=== PATIENT | male | born 1980 | race Caucasian/White ===

== ENCOUNTER 2020-02-22 19:36 | Emergency (ER) | payer BC, SELFPAY ==
[2020-02-22 19:41] VITALS: BP 162/96; PULSE 94; RESP 18; TEMP 36.3; O2SAT 97
[2020-02-22] MEDS: TETANUS,DIPHTHERIA,AC PERTUSSIS ADULT (0.5 ML) BOOSTRIX IM (20:13)
--- NOTE | 2020-02-22 20:16 | ED.WOUNDLAC ---
HPI - Wound/Laceration General Chief Complaint: Wound/Laceration Stated Complaint: lac to foot Time Seen by Provider: 02/22/20 19:39 Source: patient Mode of arrival: ambulatory Limitations: no limitations History of Present Illness HPI narrative: Patient is a 40-year-old male who presents with a chainsaw injury to the dorsal surface of the right foot patient was using a chainsaw when he cut through his boot sustaining a small laceration to the dorsal surface of the foot patient presents with midfoot laceration measuring 1 cm that is superficial and linear Related Data Allergies Allergy/AdvReac Type Severity Reaction Status Date / Time NKDA Allergy Mild Unknown Uncoded 06/30/19 13:56 Review of Systems Review of Systems: All systems reviewed & are unremarkable except as noted in HPI and below PMFSH Surgical History Surgical History History of orthopedic surgery Family History Family History (Updated 12/05/17 @ 10:00 by DOCTOR UNKNOWN) Other Cerebrovascular accident Diabetes mellitus Family history of coronary artery disease Hypertension Social History Social History Smoking status: Former smoker Smoking end date: 08/27/11 Alcohol intake: current Exam Narrative: Exam Narrative: GENERAL: Well-appearing, well-nourished, and in no acute distress. HEAD: Normocephalic, atraumatic. EYES: PERRLA and EOMI. ENT: Nares clear, no rhinorrhea or epistaxis. Mucous membranes moist. EXTREMITIES: Normal range of motion. No edema. SKIN: Warm, dry, no rash. Linear 1 cm superficial laceration of the right midfoot dorsal surface NEURO: No focal deficits. Alert and oriented x3. Neurovascularly intact PSYCH: Normal mood and affect. Course Vital Signs Vital signs: Vital Signs Temperature 97.4 F L 02/22/20 19:41 Pulse Rate 94 02/22/20 19:41 Respiratory Rate 18 02/22/20 19:41 Blood Pressure 162/96 H 02/22/20 19:41 Pulse Oximetry 97 02/22/20 19:41 Temperature 97.4 F L 02/22/20 19:41 Pulse Rate 94 02/22/20 19:41 Respiratory Rate 18 02/22/20 19:41 Blood Pressure 162/96 H 02/22/20 19:41 Pulse Oximetry 97 02/22/20 19:41 Procedures Laceration Laceration 1: Date: 02/22/20 Time: 20:17 Site: lower extremity Size (cm): 1 Description: linear Depth: simple, single layer Local Anesthetic: lidocaine 1% Pre-repair: wound explored and irrigated ====== Skin Level ====== Skin layer closed with: quynh and steri strips Number of sutures: 2 ====== Subcutaneous Layer ====== ====== Muscle Layer ====== ====== Tendon Layer ====== Dressing: Nonadhesive antibiotic ointment 4 x 4 and Coban placed post procedure MDM - Wound/Laceration MDM Narrative Medical decision making narrative: Patients injury or pain is consistent with musculoskeletal etiology. No signs of neurological or vascular compromise on exam. Compartments and tisues are soft without signs of compartment syndrome. Pain is felt appropriate for further evaluation on an outpatient basis. Discharge Plan Discharge Clinical Impression: Laceration Patient Disposition: Home, Self-Care Condition: Stable Instructions: Antibiotic Form, Laceration (ED) Additional Instructions: Keep wound clean and dry. Do not soak, take baths, or swim until wound is completely healed. If any signs of infection such as redness, swelling, increasing pain, drainage of purulent discharge, streaks up your extremity develop, seek medical attention immediately. Followup with your primary care provider in [7] days for suture removal. [] Prescriptions: No Action methylprednisolone [Medrol (Carlos)] 4 mg tablets,dose pack See Rx Instructions .ROUTE .COMPLEX Qty: 21 RF: 0 cyclobenzaprine 5 mg tablet 5 mg PO TID PRN (Reason: muscle spasm)
== END 2020-02-22 20:25 | disposition home or self-care (01) ==
PROVIDERS: Emergency Provider Emergency Medicine
DX: S91.311A Laceration without foreign body, right foot, initial encounter (principal); Z23 Encounter for immunization; Z87.891 Personal history of nicotine dependence; W31.2XXA Contact with powered woodworking and forming machines, initial encounter
CPT/HCPCS: 12001; 90471; 90715; 99282

== ENCOUNTER 2020-05-15 12:12 | Emergency (ER) | payer BC, SELFPAY ==
--- NOTE | ~2020-05-15 | XR_ITS ---
XR lumbar spine min 4V DATE: 05/15/2020 13:27 INDICATION: Low back pain. No injury. TECHNIQUE: AP, lateral, coned lateral lumbosacral and bilateral oblique views COMPARISON: None FINDINGS: No fracture or bone destruction, spondylolysis or spondylolisthesis. The included lower tho racic and lumbar pedicles are intact. There is minimal degenerative spurring of the lumbar spine. There is mild loss of interspace height a t L4-5. The sacroiliac joints are intact. IMPRESSION: Mild degenerative change Reviewed, dictated and finalized at location A. IMPRESSION: Mild degenerative change
[2020-05-15 12:17] VITALS: BP 147/91; PULSE 80; RESP 20; TEMP 36.4; O2SAT 98
[2020-05-15] MEDS: SODIUM CHLORIDE 0.9% IV 1,000 ML 999 ML IV CONT (13:14)
[2020-05-15] MEDS: HYDROcodone/acetaminophen (*CRX) 7.5-325 MG TABLET 1 TAB PO (13:15)
[2020-05-15] MEDS: KETOROLAC 30 MG/ML VIAL (*BKC) IV PUSH (13:15)
[2020-05-15] MEDS: diazePAM INJ (*CRX) 10 MG/2 ML SYRINGE 5 MG IV PUSH (13:18)
--- NOTE | 2020-05-15 13:18 | ED.BACK ---
HPI - Back Pain/Injury General Chief Complaint: Back Pain/Injury Stated Complaint: back pain, possible kidney infections Time Seen by Provider: 05/15/20 12:32 Source: patient and family Mode of arrival: ambulatory Limitations: no limitations History of Present Illness HPI Narrative: Patient is a 40-year-old male who presents with low back pain noting bilateral low back pain to the paraspinal musculature for 1 week worse with activity and movement radiating to the thighs had been taking Aleve throughout the week with some improvement yesterday after working pain was much worse and has intensified patient notes he has exacerbations of this sort a few times throughout the year has not seen primary care for this presents uncomfortable but in no distress Related Data Allergies Allergy/AdvReac Type Severity Reaction Status Date / Time NKDA Allergy Mild Unknown Uncoded 05/15/20 12:26 Review of Systems Review of Systems: All systems reviewed & are unremarkable except as noted in HPI and below PMFSH Family History Family History (Updated 12/05/17 @ 10:00 by DOCTOR UNKNOWN) Other Cerebrovascular accident Diabetes mellitus Family history of coronary artery disease Hypertension Social History Social History Smoking status: Former smoker Smoking end date: 08/27/11 Alcohol intake: current Gender identity (if verbalized by the patient): Male Exam Narrative: Exam Narrative: GENERAL: Well-appearing, well-nourished, and in no acute distress. HEAD: Normocephalic, atraumatic. EYES: PERRLA and EOMI. ENT: Nares clear, no rhinorrhea or epistaxis. Mucous membranes moist. Oropharynx without tonsillar hypertrophy exudate or other lesions. NECK: Supple. No adenopathy or masses. CHEST: Clear to auscultation. No respiratory distress. No wheezes rales or rhonchi HEART: Regular rate and rhythm. No murmur heard. Normal peripheral pulses. ABDOMEN: Soft, nontender, nondistended EXTREMITIES: Normal range of motion. No edema. Tenderness of the paraspinal musculature of the lumbar region no deformities rashes or other abnormalities noted SKIN: Warm, dry, no rash. NEURO: No focal deficits. Alert and oriented x3. Cranial nerves II through XII grossly. Motor and sensory intact and symmetrical in the lower extremities PSYCH: Normal mood and affect. Course Course Emergency Course: Patient in the room in no distress aware of case findings treatment plan and diagnosis agreeing to follow-up with primary care had improvement with medications no high risk changes in the blood work or imaging felt appropriate for outpatient reevaluation will be treated with anti-inflammatories and muscle relaxers with musculoskeletal back pain is the likely etiology of his symptoms Vital Signs Vital signs: Vital Signs Temperature 97.5 F L 05/15/20 12:17 Pulse Rate 80 05/15/20 12:17 Respiratory Rate 20 05/15/20 12:17 Blood Pressure 147/91 H 05/15/20 12:17 Pulse Oximetry 98 05/15/20 12:17 Temperature 97.5 F L 05/15/20 12:17 Pulse Rate 80 05/15/20 12:17 Respiratory Rate 20 05/15/20 12:17 Blood Pressure 147/91 H 05/15/20 12:17 Pulse Oximetry 98 05/15/20 12:17 MDM - Back Pain/Injury MDM Narrative Medical decision making narrative: Patients injury or pain is consistent with musculoskeletal etiology. No signs of neurological or vascular compromise on exam. Compartments and tisues are soft without signs of compartment syndrome. Pain is felt appropriate for further evaluation on an outpatient basis. Lab Data Result diagrams: 05/15/20 13:12 05/15/20 13:12 Labs: Lab Results 05/15/20 05/15/20 05/15/20 Range/Units 13:12 13:12 13:12 WBC 5.4 (4.5-10.0) K/mm3 RBC 5.28 (4.6-6.20) M/mm3 Hgb 14.7 (14.0-18.0) g/dL Hct 43.3 (42.0-52.0) % MCV 82.0 (80-100) fl MCH 27.8 (26-34) pg MCHC 33.9 (32-36) g/dl RDW 13.6
[2020-05-15 13:34] LABS: Basophils Percent Auto 0.7 % (0.2-1.2); Eosinophils Absolute Auto 0.2 K/mm3 (0-0.3); Eosinophils Percent Auto 3.1 % (0-4.4); Hematocrit 43.3 % (42.0-52.0); Hemoglobin 14.7 g/dL (14.0-18.0); Immature Granulocyte Absolute 0.01 K/mm3 (0.00-0.031); Immature Granulocyte Percent A 0.2 % (0-0.5); Lymphocytes Absolute Auto 1.56 K/mm3 (0.9-3.2); Lymphocytes Percent Auto 28.7 % (18.3-44.2); Mean Corpuscular HGB Conc 33.9 g/dl (32-36); Mean Corpuscular Hemoglobin 27.8 pg (26-34); Mean Platelet Volume 9.6 fl (7.4-10.4); Monocytes Absolute Auto 0.5 K/mm3 (0.1-0.6); Neutrophils Absolute Auto 3.2 K/mm3 (1.3-6.7); Neutrophils Percent Auto 58.3 % (45.5-73.1); Platelet Count Result 229 k/mm3 (150-375); Red Blood Count 5.28 M/mm3 (4.6-6.20); Red Cell Distribution Width 13.6 % (11.5-14.5); White Blood Count 5.4 K/mm3 (4.5-10.0)
[2020-05-15 13:36] LABS: Add Urine Microscopic? NO; Appearance Urine Clear (Clear); Bilirubin Urine Negative (Negative); Blood Urine Negative (Negative); Color Urine Straw (Yellow); Glucose Urine UA Negative (Negative); Ketones Urine Negative (Negative); Leukocyte Esterase Ur Negative LEU/UL (Negative); Nitrate Urine Negative (Negative); Protein Urine Negative (Negative); Specific Grav Ur 1.009 (1.001-1.035); Urobilinogen Urine Negative mg/dL (<2.0)
[2020-05-15 13:58] LABS: Anion Gap 6 mmol/L (8-16); Blood Urea Nitrogen 13 mg/dL (9-20); Calcium 8.9 mg/dL (8.4-10.2); Carbon Dioxide 28 mmol/L (22-30); Chloride 104 mmol/L (98-107); Estimated CRCL calculation 124 ml/min; Estimated Glomerular Filt Rate > 60; Glucose 110 mg/dL (75-110); Potassium 3.9 mmol/L (3.4-5.0); Sodium 138 mmol/L (137-145)
[2020-05-15 14:35] VITALS: BP 141/80; PULSE 70; RESP 18; O2SAT 98
== END 2020-05-15 14:36 | disposition home or self-care (01) ==
PROVIDERS: Emergency Medicine Emergency Medical Services; Emergency Provider Emergency Medicine; PCP Family Medicine
DX: M54.16 Radiculopathy, lumbar region (principal); Z87.891 Personal history of nicotine dependence
CPT/HCPCS: 36415; 72110; 80048; 81003; 85025; 96361; 96374; 96375; 99284; A9270; J1885; J3360; J7030

== ENCOUNTER 2022-03-22 14:52 | Emergency (ER) | payer OTHER, SELFPAY ==
[2022-03-22 15:02] VITALS: BP 148/98; PULSE 96; RESP 18; TEMP 36.7; O2SAT 98
--- NOTE | 2022-03-22 15:10 | ED.EAR ---
HPI - Ear Problem General Chief complaint: Ear Stated complaint: ear pain Time Seen by Provider: 03/22/22 15:10 History of Present Illness HPI Narrative: Will Young is a 42 yo male with a PMH of HTNwho comes w L ear pain- started on Sat and pain resolved. Returned yesterday- 3/10 at rest , worse with chewing, No hearing change. Swimming on Sunday and thinks that he got water in his ear Related Data Allergies Allergy/AdvReac Type Severity Reaction Status Date / Time No Known Allergies Allergy Verified 03/22/22 15:08 Review of Systems Review of Systems: CONSTITUTIONAL: Denies fever, chills, sweats. EYES: Denies visual changes, redness, discharge. ENT: Denies rhinorrhea, congestion, sore throat, otalgia. CARDIOVASCULAR: Denies chest pain, palpitations, edema. RESPIRATORY: Denies dyspnea, wheezing, cough GASTROINTESTINAL: Denies abdominal pain, nausea, vomiting, diarrhea. GENITOURINARY: Denies dysuria, hematuria, abnormal discharge SKIN: Denies rash or itching. NEUROLOGIC: Denies numbness, or focal weakness. PSYCHIATRIC: Denies anxiety or depression. [facility] Past Medical History Medical History Dyshidrotic eczema Essential (primary) hypertension Labral tear of shoulder right shoulder Pre-diabetes Thyroglossal duct cyst (~1981) Surgical History Surgical History History of orthopedic surgery (~12/03/17) ORIF of tibial fracture History of repair of ACL Right ACL and LCL repair at age 17 History of shoulder surgery (~2006) Repair of right shoulder labrum Family History Family History Son Anxiety ADHD Other Cerebrovascular accident Diabetes mellitus Family history of coronary artery disease Hypertension Social History Social History Smoking status: Current every day smoker Second hand tobacco smoke exposure: No Alcohol intake: current Alcohol use details: consumes 5 beers weekly Gender identity (if verbalized by the patient): Male Comments At time of signature, I agree with nursing past medical, surgical, social and family history. There is no relevant family history pertinent to the presenting complaint. Patient being treated for HTN Exam Narrative: GENERAL: This is a well-nourished, well-developed patient, in mild distress. pain is 5 out of 10 HEAD: normocephalic, atraumatic. EYES: Sclera clear/white. Vision is grossly intact. EARS: External ears normal, auditory canals clear on right and swollen and painful on right with erythema with drainage, TMs normal without perforation. Hearing grossly intact. Painful anterior to pinna NOSE: External nose normal without nasal discharge, nares without redness, no rhinorrhea. THROAT: Mucous membranes moist, NECK: Neck supple, non-tender CARDIOVASCULAR: Regular rate and rhythm without murmurs, gallops, or rubs. RESPIRATORY: Clear to auscultation. Breath sounds equal bilaterally. No wheezes, rales, or rhonchi. GASTROINTESTINAL: Not done SKIN: warm, intact with no suspicious lesions or rash, good texture and turgor. NEURO: awake, alert, and oriented to person, place and time. There were no obvious focal neurologic abnormalities. Steady gait EXTREMITIES: Normal range of motion. BACK: Nontender without deformity Course Course Emergency Course: Patient here with left-sided ear pain and pain with chewing or motion of jaw, started after going swimming on Sunday pain is intensified in the last day or 2 Start amoxicillin 875 twice daily and eardrops-discussed administration of ear drops Level of Care: Express Care Visit Vital Signs Vital signs: Vital Signs Temperature 98.1 F 03/22/22 15:02 Pulse Rate 96 03/22/22 15:02 Respiratory Rate 18 03/22/22 15:02 Blood Pressure 148/98 H 03/22/22 15:02 Pulse Oximetry 98 07
== END 2022-03-22 15:28 | disposition home or self-care (01) ==
PROVIDERS: Emergency Provider Nurse Practitioner; PCP Family Medicine
DX: H65.92 Unspecified nonsuppurative otitis media, left ear (principal); F17.200 Nicotine dependence, unspecified, uncomplicated; I10 Essential (primary) hypertension; R73.03 Prediabetes
CPT/HCPCS: 99213; G0463

== ENCOUNTER 2022-10-26 11:31 | Emergency (ER) | payer SELFPAY ==
[2022-10-26 11:42] VITALS: BP 165/105; PULSE 86; RESP 16; TEMP 36.4; O2SAT 98
--- NOTE | 2022-10-26 12:11 | ED.BACK ---
HPI - Back Pain/Injury General Chief Complaint: Back Pain/Injury Stated Complaint: BACK PAIN Time Seen by Provider: 10/26/22 12:04 Source: patient Mode of arrival: ambulatory Limitations: no limitations History of Present Illness HPI Narrative: patient is a 42-year-old male who presents with mid back pain starting this morning. States he took some Aleve last night because he felt sore with mild relief. Now complaining back spasms movement and pain shooting his legs. Denies any numbness or tingling or difficulty walking. denies any injury to back. states this happens every 1-2 years. Related Data Allergies Allergy/AdvReac Type Severity Reaction Status Date / Time No Known Allergies Allergy Verified 10/26/22 11:38 Review of Systems Review of Systems: CONSTITUTIONAL: Denies malaise, chills, sweats, or fever. EYES: Denies visual changes, redness, or discharge. ENT: Denies rhinorrhea, congestion, sinus pain, otalgia or sore throat. CARDIOVASCULAR: Denies chest pain, palpitations, or edema. RESPIRATORY: Denies cough or dyspnea. GASTROINTESTINAL: Denies abdominal pain, nausea, vomiting, diarrhea, bloody, or mucous stools. Denies incontinence of stool. GENITOURINARY: Denies dysuria or hematuria. Denies incontinence of bladder SKIN: Denies rash or itching. MUSCULOSKELETAL: Denies joint pain, or myalgia. reports back pain NEUROLOGIC: Denies numbness, weakness, or headache. PSYCHIATRIC: Denies anxiety or depression. All systems reviewed & are unremarkable except as noted in HPI and below PMFSH Past Medical History Medical History Dyshidrotic eczema Essential (primary) hypertension Labral tear of shoulder right shoulder Pre-diabetes Thyroglossal duct cyst (~1981) Surgical History Surgical History History of orthopedic surgery (~12/03/17) ORIF of tibial fracture History of repair of ACL Right ACL and LCL repair at age 17 History of shoulder surgery (~2006) Repair of right shoulder labrum Family History Family History Son Anxiety ADHD Other Cerebrovascular accident Diabetes mellitus Family history of coronary artery disease Hypertension Social History Social History Smoking packs per day: 1 Smoking cigarettes per day: 20.0 Smoking status: Current every day smoker Second hand tobacco smoke exposure: No Alcohol intake: current Alcohol use details: consumes 5 beers weekly Substance use: never Substance use type: does not use Gender identity (if verbalized by the patient): Male Comments At time of signature, agree with nursing past medical, surgical, social and family history. There is no relevant family history pertinent to the presenting complaint. Exam Narrative: GENERAL: Well-appearing, well-nourished, and in no acute distress. HEAD: Normocephalic, atraumatic. EYES: PERRLA and EOMI. NECK: Supple. No lymphadenopathy. CHEST: Clear to auscultation. No respiratory distress. HEART: Regular rate and rhythm. Distal pulses palpable and equal, cap refill <3 seconds ABDOMEN: Soft, nontender, nondistended, normal active bowel sounds, no palpable or pulsatile masses. No CVA tenderness MUSCULOSKELETAL: Normal range of motion and strength in all extremities; 5/5 strength with hip flexion and extension, dorsiflexion and extension, knee flexion and extension, plantar flexion and extension. Normal sensation in dermatomal distributions with sensitivity to light touch and pain. No midline back tenderness to palpation. Lumbar paraspinal tenderness bilaterally. Transfers from lying to sitting to standing. SKIN: Warm, dry, no rash. No ecchymosis, erythema, open wounds to back. NEURO: No focal deficits. Alert and oriented x3. Reflexes intact. Normal gait. PSYCH: Normal mood and af
== END 2022-10-26 12:28 | disposition home or self-care (01) ==
PROVIDERS: Emergency Provider Nurse Practitioner Family; PCP Family Medicine
DX: M54.9 Dorsalgia, unspecified (principal); I10 Essential (primary) hypertension; F17.210 Nicotine dependence, cigarettes, uncomplicated
CPT/HCPCS: 99213; G0463

== ENCOUNTER 2023-11-05 11:23 | Emergency (ER) | payer BC, SELFPAY ==
[2023-11-05 11:38] VITALS: BP 172/108; PULSE 93; RESP 16; TEMP 37.2; O2SAT 98
--- NOTE | 2023-11-05 12:07 | ED.GENADULT ---
HPI - General Adult General Chief complaint: Upper Respiratory Infection Stated complaint: Sinus/Bodyaches Time Seen by Provider: 11/05/23 12:07 Source: patient, RN notes reviewed and old records reviewed Mode of arrival: ambulatory Limitations: no limitations History of Present Illness HPI narrative: 43-year-old patient to Express Care for complaint of nasal congestion, nonproductive cough, sore throat, chills, and hoarseness for 4 days. Patient denies nausea, vomiting, diarrhea, shortness of breath. patient in no signs of distress. Respirations even and labored. Patient able to control secretions. Patient able to tolerate fluids by mouth. Related Data Home Medications Medication Instructions Recorded Confirmed No Home Medications 11/05/23 11/05/23 Allergies Allergy/AdvReac Type Severity Reaction Status Date / Time No Known Allergies Allergy Verified 11/05/23 11:44 Review of Systems Review of Systems: All systems reviewed & are unremarkable except as noted in HPI and below Constitutional: Constitutional: Reports body ache(s), Reports chills, Reports fever(s) ( subjective) and Denies headache(s) Eyes: Eyes: Reports no additional eye complaints ENT: Reports as per HPI, Reports hoarseness, Reports nasal congestion and Reports sore throat Cardiovascular: Cardiovascular: Reports no additional cardiovascular complaints, Denies chest pain and Denies dyspnea Respiratory: Respiratory: Reports as per HPI, Reports cough ( nonproductive) and Denies dyspnea Musculoskeletal: Musculoskeletal: Reports no additional musculoskeletal complaints Neurologic: Reports system reviewed and no additional complaints, except as documented Psychiatric: Psychiatric: Reports no additional psychiatric complaints PMFSH Past Medical History Medical History Dyshidrotic eczema Essential (primary) hypertension Labral tear of shoulder right shoulder Pre-diabetes Thyroglossal duct cyst (~1981) Surgical History Surgical History History of orthopedic surgery (~12/03/17) ORIF of tibial fracture History of repair of ACL Right ACL and LCL repair at age 17 History of shoulder surgery (~2006) Repair of right shoulder labrum Family History Family History Son Anxiety ADHD Other Cerebrovascular accident Diabetes mellitus Family history of coronary artery disease Hypertension Social History Social History Smoking packs per day: 1 Smoking cigarettes per day: 20.0 Years smoked: 27 Smoking pack-years: 27.00 Smoking status: Current every day smoker Tobacco type: cigarettes Second hand tobacco smoke exposure: No Alcohol intake: current Alcohol use details: consumes 5 beers weekly Substance use: never Substance use type: does not use Lack of Transportation: No Lack of Food: Never True Current Housing: I Have Housing Concerned About Future Housing: No Difficulty Paying Gas/Electric Bills: No Difficulty Paying for Meds: No Currently Unemployed: No Education: Trade/Vocational Certificate Living arrangements: with family Occupation/Education: occupation Gender identity (if verbalized by the patient): Male Agree to blood products: Yes Comments At the time of my signature, I reviewed and agree with the nursing past medical, surgical, social, and family history. There is no relevant family history pertinent to the patient complaint. Exam Const: General: cooperative, healthy appearing, comfortable, no acute distress, alert and well nourished Nutritional Appearance: well nourished Orientation/consciousness: patient oriented x3 Limitations: no limitations HENMT: Head: normal to inspection Ears: external ears normal Face/Nose/Sinus: Normal external nose
== END 2023-11-05 12:25 | disposition home or self-care (01) ==
PROVIDERS: Emergency Provider Nurse Practitioner Family; PCP Family Medicine
DX: J06.9 Acute upper respiratory infection, unspecified (principal); Z20.822 Contact with and (suspected) exposure to COVID-19; F17.210 Nicotine dependence, cigarettes, uncomplicated; I10 Essential (primary) hypertension; R73.03 Prediabetes
CPT/HCPCS: 87426; 87804; 99213; G0463

== ENCOUNTER 2023-11-18 10:34 | Emergency (ER) | payer BC, SELFPAY ==
[2023-11-18 10:35] VITALS: BP 158/98; PULSE 89; RESP 18; TEMP 36.6; O2SAT 100
--- NOTE | 2023-11-18 11:35 | ED.BACK ---
HPI - Back Pain/Injury General Chief Complaint: Back Pain/Injury Stated Complaint: bilat back pain, spasms Time Seen by Provider: 11/18/23 10:45 History of Present Illness HPI Narrative: 33-year-old male with history of hypertension presents to the emergency department for bilateral back pain that started yesterday around 4:00 p.m.. Patient states it feels like muscle spasms and is located throughout his lower back. He denies radicular radiating pain, saddle anesthesia, bowel or bladder incontinence or retention, recent injury trauma, IV drug use, fever, nausea or vomiting, dysuria or hematuria. Related Data Allergies Allergy/AdvReac Type Severity Reaction Status Date / Time No Known Allergies Allergy Verified 11/18/23 10:42 Review of Systems Review of Systems: CONSTITUTIONAL: Denies fever, chills, or sweats. EYES: Denies visual changes, redness, or discharge. ENT: Denies rhinorrhea, congestion, sore throat, or otalgia. CARDIOVASCULAR: Denies chest pain, palpitations, or edema. RESPIRATORY: Denies cough or dyspnea. GASTROINTESTINAL: Denies abdominal pain, nausea, vomiting, or diarrhea. GENITOURINARY: Denies dysuria or hematuria. SKIN: Denies rash or itching. MUSCULOSKELETAL: See HPI NEUROLOGIC: Denies headache, numbness, or weakness. PSYCHIATRIC: Denies anxiety or depression. [facility] Past Medical History Medical History Dyshidrotic eczema Essential (primary) hypertension Labral tear of shoulder right shoulder Pre-diabetes Thyroglossal duct cyst (~1981) Surgical History Surgical History History of orthopedic surgery (~12/03/17) ORIF of tibial fracture History of repair of ACL Right ACL and LCL repair at age 17 History of shoulder surgery (~2006) Repair of right shoulder labrum Family History Family History Son Anxiety ADHD Other Cerebrovascular accident Diabetes mellitus Family history of coronary artery disease Hypertension Social History Social History Smoking packs per day: 1 Smoking cigarettes per day: 20.0 Years smoked: 27 Smoking pack-years: 27.00 Smoking status: Current every day smoker Tobacco type: cigarettes Second hand tobacco smoke exposure: No Alcohol intake: current Alcohol use details: consumes 5 beers weekly Substance use: never Substance use type: does not use Lack of Transportation: No Lack of Food: Never True Current Housing: I Have Housing Concerned About Future Housing: No Difficulty Paying Gas/Electric Bills: No Difficulty Paying for Meds: No Currently Unemployed: No Education: Trade/Vocational Certificate Living arrangements: with family Occupation/Education: occupation Gender identity (if verbalized by the patient): Male Agree to blood products: Yes Exam Narrative: GENERAL: Well-appearing, well-nourished, and in no acute distress. HEAD: Normocephalic, atraumatic. NECK: Supple. BACK: pain to palpation of the right and left flanks and paraspinous muscles. No midline thoracolumbar spinous tenderness, step-offs or deformities. No overlying skin changes. Negative straight leg raise bilaterally. CHEST: Clear to auscultation. No respiratory distress. HEART: Regular rate and rhythm. No murmur heard. Normal peripheral pulses. ABDOMEN: Soft, nontender, nondistended, normal active bowel sounds. EXTREMITIES: Normal range of motion. No edema. strength 5/5 to bilateral lower extremities, sensation intact throughout. No saddle anesthesia. DP pulses 2+. SKIN: Warm, dry, no rash. NEURO: No focal deficits. Alert and oriented x3 Course Vital Signs Vital signs: Vital Signs Temperature 97.8 F 11/18/23 10:35 Pulse Rate 89 11/18/23 10:35 Respiratory Rate 18 11/18/23 10:35 Bloo
[2023-11-18] MEDS: dexAMETHasone SOD PHOS INJ 10 MG/ML 1 ML VIAL IM (11:45)
[2023-11-18] MEDS: LIDOCAINE 5% PATCH 1 PATCH TRANSDERM (11:45)
[2023-11-18] MEDS: KETOROLAC 30 MG/ML VIAL (*BKC) IM (11:45)
[2023-11-18] MEDS: methocarbamoL 500 MG TABLET PO (11:46)
[2023-11-18 12:36] LABS: Add Urine Microscopic? NO
[2023-11-18 12:37] LABS: Appearance Urine Clear (Clear); Bilirubin Urine Negative (Negative); Blood Urine Negative (Negative); Color Urine Yellow (Yellow); Glucose Urine UA Negative (Negative); Ketones Urine Negative (Negative); Leukocyte Esterase Ur Negative LEU/UL (Negative); Nitrate Urine Negative (Negative); Protein Urine Negative (Negative); Urobilinogen Urine 0.2 mg/dL (<2.0); pH Urine 7.5 (5.0-9.0)
== END 2023-11-18 13:54 | disposition home or self-care (01) ==
PROVIDERS: Emergency Provider Physician Assistant; PCP Family Medicine
DX: M54.50 Low back pain, unspecified (principal); I10 Essential (primary) hypertension; R73.03 Prediabetes; F17.210 Nicotine dependence, cigarettes, uncomplicated
CPT/HCPCS: 81003; 96372; 99284; A9270; J1100; J1885; J2405; J2704

== ENCOUNTER 2023-12-14 11:06 | Outpatient (CLI) | payer BC, SELFPAY ==
--- NOTE | ~2023-12-14 | XR_ITS ---
EXAMINATION: XR lumbar spine min 4V DATE: 12/14/2023 11:25 INDICATION: Low back pain, unspecified. TECHNIQUE: 5 views of lumbar spine were obtained. COMPARISON: None. FINDINGS: There is 3 degrees dextrocurvature of lumbar spine. Vertebral body heights are normal. Ther e is mildly decreased disc height at L4-L5. There are endplate osteophytes at multiple levels. There is multilevel facet joint osteoarthritis, moderate in lower lumbar spine. IMPRESSION: 1. Mild lumbar spondylosis. Reviewed, dictated and finalized at location E. IMPRESSION: 1. Mild lumbar spondylosis.
== END 2023-12-14 11:07 | disposition home or self-care (01) ==
LOC: ANHIMG 11:09
PROVIDERS: PCP Family Medicine; Visit Provider Family Medicine
DX: M43.06 Spondylolysis, lumbar region (principal)
CPT/HCPCS: 72110

== ENCOUNTER 2024-03-19 12:26 | Outpatient (CLI) | payer BC, SELFPAY ==
--- NOTE | 2024-03-19 13:35 | NEURO_ITS ---
Impression: # Complains of numbness of right hand. Non-diabetic. # Right Carpal Tunnel Syndrome of mild degree. # No ulnar neuropathy. # Patient does have ulnar to median cross innervation on stimulation at the elbow. # Normal needle/EMG exam. Nerve Conduction Studies Anti Sensory Summary Table Stim Site NR Peak (ms) P-T Amp (?V) Site1 Site2 Delta-P (ms) Dist (cm) Berto (m/s) Right Median Anti Sensory (2-3nd Digit) Wrist 3.7 71.0 Wrist 2-3nd Digit 3.7 14.0 38 Wrist 3.8 39.2 Wrist 2-3nd Digit 3.7 14.0 38 Right Radial Anti Sensory (Base 1st Digit) Wrist 2.2 15.1 Wrist Base 1st Digit 2.2 0.0 Right Ulnar Anti Sensory (5th Digit) Wrist 2.4 20.9 Wrist 5th Digit 2.4 14.0 58 Motor Summary Table Stim Site NR Onset (ms) O-P Amp (mV) Site1 Site2 Delta-0 (ms) Dist (cm) Berto (m/s) Right Median Motor (Abd Poll Brev) Wrist 4.1 6.4 Elbow Wrist 5.2 31.0 60 Elbow 9.3 5.6 ELB/ADM Wrist 0.6 0.0 ELB/ADM 3.5 4.4 Erbs ELB/ADM 6.0 0.0 Erbs 9.5 3.6 Right Ulnar Motor (Abd Dig Minimi) Wrist 2.6 4.6 A Elbow Wrist 5.4 32.0 59 A Elbow 8.0 3.4 F Wave Studies NR F-Lat (ms) L-R F-Lat (ms) Right Median (Mrkrs) (Abd Poll Brev) 31.33 Right Ulnar (Mrkrs) (Abd Dig Min) 30.70 EMG Side Muscle Nerve Root Ins Act Fibs Amp Dur Recrt Comment Right 1stDorInt Ulnar C8-T1 Nml Nml Nml Nml Nml Right Ext Indicis Radial (Post Int) C7-8 Nml Nml Nml Nml Nml Right Ext Digitorum Radial (Post Int) C7-8 Nml Nml Nml Nml Nml Right BrachioRad Radial C5-6 Nml Nml Nml Nml Nml Right PronatorTeres Median C6-7 Nml Nml Nml Nml Nml Right Abd Poll Brev Median C8-T1 Nml Nml Nml Nml Nml Right ABD Dig Min Ulnar C8-T1 Nml Nml Nml Nml Nml MTDD
== END 2024-03-19 12:27 | disposition home or self-care (01) ==
PROVIDERS: PCP Family Medicine; Visit Provider Plastic Surgery
DX: R20.0 Anesthesia of skin (principal); R20.2 Paresthesia of skin; G56.01 Carpal tunnel syndrome, right upper limb
CPT/HCPCS: 95886; 95909

== ENCOUNTER 2024-06-04 01:44 | Day surgery (SDC) | payer BC, SELFPAY ==
[2024-05-26 14:17] VITALS: BMI 33.3
--- NOTE | 2024-05-26 14:26 | SUR.PREOP ---
Addendum entered by Katelynn Aguillon RN 05/27/24 13:51: NPO for 8 hours prior to surgery Original Note: Report to the Outpatient Waiting Room, entrance under the green pavilion located off [facility], at time 12:45 p.m. on date 06/04/2024. Planned Procedure Time: 2:45p.m..? Time changes happen often and if your time is changed the preop area will call you the afternoon before. - You and your visitor will be asked to self-screen and do not enter if you have any COVID symptoms. Please call surgeon if you need to reschedule. - A mask is optional within the hospital at this time. Patients may have clear liquids (water, carbonated beverages, clear teas, apple juice) until 3 hours prior to surgery with a maximum of 20 ounces. - No food from midnight until time of surgery and no smoking - Infants may have breast milk until 4 hours before surgery, infant formula 6 hours prior to surgery. - Children will be allowed to drink immediately following surgery.? If applicable, please bring a bottle or sippy cup to assist with drinking. Juice, water, soda, and popsicles are readily available.? For infants on formula, please bring formula the day of surgery.? Pacifiers are allowed. Take only the following medications with a SIP of water on the morning of surgery: amlodipine DO NOT STOP ANY OF YOUR OTHER PRESCRIPTION MEDICATIONS PRIOR TO SURGERY EXCEPT THE FOLLOWING Medications to discontinue per physician N/A Date to take last dose N/A Please no make-up, nail lao, hairspray, perfume, deodorant, or body powder the day of surgery.? No jewelry (including any body piercings) or valuables the day of surgery, leave them at home.? Please take a shower or bath the night before, or the morning of, surgery with an antibacterial soap.? Wear comfortable, loose fitting clothing.? Children are encouraged to wear pajamas. - Jewelry must be removed prior to entering the operating room.? Rings and piercings that are not removed may be cut off. - The hospital will not accept responsibility for valuables.? - Please leave all valuables, including medications, at home the day of surgery. If you are going home after surgery, a licensed helper/driver must drive you home.? - NO public transportation without another adult if you receive anesthesia. - We recommend that an adult stay with you for 24 hours following discharge. - We also recommend that you do not drive, make important decision, drink alcoholic beverages, or take any drugs that were not prescribed by your health care provider for at least 24 hours after your discharge time. For Pediatric surgeries, we recommend two adults accompany the child home. Follow any additional instructions given to you from your surgeon. Telephone instructions given to Will Young and asked if any additional questions and then verbalized understanding. Patient advised to call surgeon office or pre surgery nurse liaison [phone] if any additional questions.
[2024-06-04 06:40] VITALS: BP 155/100; PULSE 77; RESP 18; TEMP 36.9; O2SAT 99; BMI 32.7
--- NOTE | 2024-06-04 06:48 | WPDHPUPDATE1 ---
History and Physical Update Update Date/Time: 06/04/24 06:48 Patient seen and examined in pre-operative holding area. No interval change in medical history or symptoms. Patient recalls previous discussion of benefits and alternatives to procedure. Continues to desire to proceed with right endoscopic possible open carpal tunnel release, right cubital tunnel release and right ring finger a1 gretchen release. Reviewed procedure, post-op expectations and risks including but not limited to bleeding, infection, injury to tendon/nerve/vessel, decreased hand function, stiffness, RSD, no change or worsening of symptoms. I discussed the possible use of assistants and their participation in the case. Patient stated understanding and signed the consent form wishing to proceed.
--- NOTE | 2024-06-04 06:48 | W.PM.PROC2 ---
Procedure Note - Detailed Date of Procedure 06/04/24 Pre-op Diagnosis right carpal and cubital tunnel and R Ring trigger finger Post-op Diagnosis Same Procedure Performed right ectr, right CuTR, right RF a1 gretchen release Surgeon Deejay Mace MD Retail Management Trainee nidia lyons pa-c Anesthesia MAC Description of Procedure INFORMED CONSENT: The patient was seen and examined and marked in the pre-op area.? The patient signed the consent form. PROCEDURE IN DETAIL:The patient taken back to OR on the stretcher in supine position. Time out performed with anesthesia, surgeon and staff agreeing on patient's name site and surgery to be performed SCDs were placed on the lower extremities and inflated. A tourniquet was placed on {right} upper extremity and antibiotics given IV After anesthesia administered sedation I injected {10}cc 1%lido with epi and 0.5% marcaine plain at the operative sites The?{right upper extremity}?was prepped and draped in sterile fashion the??{right upper extremity} was? exsanguinated with Esmarch bandage and tourniquet inflated to 250mmHg I made a transverse incision in the {right} volar distal wrist crease through skin and dermis with 15 blade scalpel.? Littler scissors spread down to antebrachial fascia. A small incision was made in antebrachial fascia allowing access to Carpal tunnel. I proceeded with sequential dilation staying in line with the ring finger and hugging the hook of the hamate.? I then used the synovial elevator to free any adhesions from the underside of the transverse carpal ligament. Next I was able to insert the Microaire endoscopic carpal tunnel device with direct visualization of the transverse fibers on the monitor and proceeded with complete segmental retrograde release of the ligament in its entirety.? I irrigated with normal saline and closed with 4-0 monocryl for dermis and subcuticular closure. I next proceeded with making a longitudinal incision between two heads for flexor carpi ulnaris at end of {right} cubital tunnel with 15 blade scalpel.? Littler scissors were used to spread down to FCU fascia.? An incision was made in FCU fascia and ulnar nerve identified exiting cubital tunnel.? I proceeded with complete retrograde release of the cubital tunnel including 7cm proximal for the intermuscular septum.? The nerve appeared healthy with visible vaso nervorum.? There was no subluxation on full elbow range of motion. ? I irrigated with normal saline and closure with 4-0 monocryl for dermis and subcuticular. Next I proceeded with making a longitudinal incision over the right ring finger a1 gretchen through skin and dermis with 15 blade scalpel. Littler scissors were used to spread down to the a1 gretchen. I iniitlaly incised the A1 gretchen with 15 blade then used littler scissors to spread above it and below it proximally and distally and completed the trasection. Ragnell retractors were used to withdraw the fds and fdp tendons from the wound for inspection. They were free of masses and synovitis and gliding smoothly in the sheath without triggering or crepitus. I irrigated with normal saline and closed skin with 4-0 chromic The incision was covered with xeroform in the palm and Dermabond for wrist and elbow, then 4x4s, angle, and a posterior elbow and volar wrist splint for patient safety, security and comfort and secured with christian bandages after the tourniquet was let down noting the hand was warm and well perfused.? Patient awaken from anesthesia and transferred to recovery in stable condition Complications - none EBL- 1cc Disposition - home in stable conditions Nidia Lyons PA-C was essential for positioning, retraction, closure and dressing placement [facility] Billing Surgery - Charge Forward: Surgery Billing ([id number], [id number], [id number] same for nidia mendoza )
--- NOTE | 2024-06-04 06:57 | WPDANESEPPF ---
Anes - Initial Pre Proc Eval Procedure: Operation Date: 06/04/24 07:30 Proposed Procedures p Right Endoscopic Carpal Tunnel Release, Possible Open, Right Cubital Tunnel Release, - Deejay Mace MD s Right Ring Trigger Finger Release - Deejay Mace MD Date/Time: 06/04/24 06:57 Surgeon: Deejay Mace MD Pre Op Diagnosis: right carpal and cubital tunnel syndr, Patient Data Age: 44 Gender: M Height: 1.88 m Weight: 117.93 kg Allergies Allergy/AdvReac Type Severity Reaction Status Date / Time No Known Allergies Allergy Verified 05/26/24 14:15 Home Medications Medication Instructions Recorded Confirmed Type clobetasol 0.05 % topical ointment 1 applic topical DAILY #45 grams 12/06/23 05/26/24 Rx cyclobenzaprine 10 mg tablet 10 mg PO TID PRN muscle spasm #30 12/06/23 05/26/24 Rx tabs amlodipine 5 mg tablet 5 mg PO DAILY 05/26/24 05/26/24 History Patient hx anesthesia problems: none Family hx anesthesia problems: none Results Review: All pre-operative results and documents have been reviewed as part of the pre-operative evaluation. [facility] Past Medical History Medical History Dyshidrotic eczema Essential (primary) hypertension Labral tear of shoulder right shoulder Pre-diabetes Thyroglossal duct cyst (~1981) Surgical History Surgical History H/O excision of dermoid cyst (~05/2023) back History of orthopedic surgery (~12/03/17) ORIF of tibial fracture History of repair of ACL Right ACL and LCL repair at age 17 History of shoulder surgery (~2006) Repair of right shoulder labrum Family History Family History Son Anxiety ADHD Other Cerebrovascular accident Diabetes mellitus Family history of coronary artery disease Hypertension Social History Social History Smoking packs per day: 1 Smoking cigarettes per day: 20.0 Years smoked: 20 Smoking pack-years: 20.00 Smoking status: Current every day smoker Tobacco type: cigarettes Second hand tobacco smoke exposure: No Alcohol intake: current Drinks per week: 8 Alcohol use details: consumes 5 beers weekly Substance use: never Substance use type: does not use Lack of Transportation: No Lack of Food: Never True Current Housing: I Have Housing Concerned About Future Housing: No Difficulty Paying Gas/Electric Bills: No Difficulty Paying for Meds: No Currently Unemployed: No Education: Trade/Vocational Certificate Living arrangements: with family Occupation/Education: occupation Gender identity (if verbalized by the patient): Male Spiritual care concerns: No Agree to blood products: Yes Anes - Eval Final PreProcedure Day of Procedure 06/04/24 06:57 Patient weight: obese Heart: regular rate and rhythm Lungs: clear to auscultation Airway: Mallampati scale class II Neurological: alert and oriented Last oral intake: >/= 8 hours ASA classification: III Emergent: no Anesthetic plan: proceed Anesthesia type and monitoring: general GIVS and standard monitoring Results Review: All pre-operative results and documents have been reviewed as part of the pre-operative evaluation. Informed Consent: The patient's anesthetic plan and its attendant risks and benefits were discussed with the patient/family/POA. Questions were solicited and answers provided to the satisfaction of the patient/family/POA.
[2024-06-04] MEDS: LACTATED RINGERS 1,000 ML 30 ML IV CONT (07:00)
[2024-06-04 07:15] VITALS: BP 145/97
[2024-06-04] MEDS: ceFAZolin 2 GM/D5W 50 ML 2 GM/50 ML BAG IVPB (07:25)
[2024-06-04] MEDS: LIDO 1%/EPINEPHRINE 1:100,000 50 ML VIAL 20 ML INFILTRATE (07:46)
[2024-06-04] MEDS: LIDOCAINE HCL 1% LOCAL INJ 10 ML VIAL 20 ML INFILTRATE (07:48)
[2024-06-04 07:52] VITALS: BP 108/74; PULSE 72; RESP 14; O2SAT 97
[2024-06-04 08:20] VITALS: BP 120/70
== END 2024-06-04 08:30 | disposition home or self-care (01) ==
PROVIDERS: PCP Family Medicine; Visit Provider Plastic Surgery
PROC: 01N54ZZ Release Median Nerve, Percutaneous Endoscopic Approach (ICD-10-PCS; CPT 29848; principal; 2024-06-04 07:30)
PROC: (CPT 26055; 2024-06-04 07:30)
DX: G56.03 Carpal tunnel syndrome, bilateral upper limbs (principal); M65.341 Trigger finger, right ring finger; I10 Essential (primary) hypertension; R73.03 Prediabetes; F17.210 Nicotine dependence, cigarettes, uncomplicated; E66.9 Obesity, unspecified; Z68.32 Body mass index [BMI] 32.0-32.9, adult; Z98.890 Other specified postprocedural states; Z82.49 Family history of ischemic heart disease and other diseases of the circulatory system
CPT/HCPCS: 29848; 64718; 26055; A9270; J0690; J2003; J2004; J2250; J2704; J3010; J7120

== ENCOUNTER 2024-08-03 18:37 | Emergency (ER) | payer OTHER, BC, SELFPAY ==
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
[2024-08-03 18:38] VITALS: BP 166/98; PULSE 87; RESP 18; TEMP 36.6; O2SAT 100
--- NOTE | 2024-08-03 19:02 | PC.NURSE ---
isauro called to state patient refuses the hip xray because he thinks its fine .
--- NOTE | 2024-08-03 19:52 | PC.NURSE ---
Report received from JEANNINE Cantu. Assumed care of patient at this time.
[2024-08-03] MEDS: methocarbamoL 750 MG TABLET 1500 MG PO (20:27)
[2024-08-03] MEDS: KETOROLAC 30 MG/ML VIAL (*BKC) 15 MG IM (20:28)
[2024-08-03] MEDS: HYDROcodone/acetaminophen (*CRX) 5-325 MG TABLET 2 TAB PO (20:28)
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
--- NOTE | 2024-08-03 20:37 | PC.NURSE ---
VORB to place post op shoe to right foot and place thumb spica with volar splint to right wrist/hand.
[2024-08-03 22:22] VITALS: BP 141/86; PULSE 91; RESP 18; TEMP 36.8; O2SAT 99
== END 2024-08-03 22:24 | disposition home or self-care (01) ==
PROVIDERS: Emergency Provider Emergency Medicine; PCP Family Medicine
DX: S92.344A Nondisplaced fracture of fourth metatarsal bone, right foot, initial encounter for closed fracture (principal); S52.691A Other fracture of lower end of right ulna, initial encounter for closed fracture; S52.614A Nondisplaced fracture of right ulna styloid process, initial encounter for closed fracture; V23.49XA Other motorcycle driver injured in collision with car, pick-up truck or van in traffic accident, initial encounter
CPT/HCPCS: 29125; 70450; 72125; 73110; 73610; 73630; 96372; 99284; A9270; J1885

== ENCOUNTER 2024-09-15 10:40 | Outpatient (CLI) | payer OTHER, SELFPAY ==
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
== END 2024-09-15 10:41 | disposition home or self-care (01) ==
PROVIDERS: PCP Orthopaedic Surgery; Visit Provider Orthopaedic Surgery
DX: S92.341D Displaced fracture of fourth metatarsal bone, right foot, subsequent encounter for fracture with routine healing (principal); S93.104D Unspecified dislocation of right toe(s), subsequent encounter; X58.XXXD Exposure to other specified factors, subsequent encounter
CPT/HCPCS: 73700